=== PATIENT | female | born 1950 | race Hispanic/Latino ===

== ENCOUNTER → 2020-12-08 | Outpatient (CLI) | payer OTHER | END | disposition home or self-care (01) | LOC: OIH 12:51 | PROVIDERS: ATTEND Internal Medicine | DX: M19.072 Primary osteoarthritis, left ankle and foot (principal); M25.711 Osteophyte, right shoulder; M77.8 Other enthesopathies, not elsewhere classified | CPT/HCPCS: 73030; 73610; 73630 ==